=== PATIENT | male | born 1995 | race African-American/Black ===

== ENCOUNTER 2017-03-06 17:24 | Emergency (ER) | payer SELFPAY ==
[~2017-03-06] VITALS: Ht 180.3 cm; Wt 54.4 kg
[2017-03-06 17:50] VITALS: BP 131/56
[2017-03-06] MEDS ORDERED: NEOMY/BACITR/POLYMYXIN OINT PACKET. TP ONE (18:30)
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
[2017-03-06] MEDS ORDERED: DIPHTH,PERTUSS(ACELL),TET TOX 0.5 ML DISP.SYRIN. VAX IM ONE (18:45)
== END 2017-03-06 19:01 | disposition home or self-care (01) ==
LOC: ER 17:24
DX: S61.211A Laceration without foreign body of left index finger without damage to nail, initial encounter (principal); F12.10 Cannabis abuse, uncomplicated; W26.0XXA Contact with knife, initial encounter; Y93.89 Activity, other specified; Y92.89 Other specified places as the place of occurrence of the external cause; Y99.8 Other external cause status
CPT/HCPCS: 12001; 90471; 90715; 99283-25

== ENCOUNTER 2019-08-02 07:20 | Emergency (ER) | payer SELFPAY ==
[~2019-08-02] VITALS: Ht 180.3 cm; Wt 54.9 kg
[2019-08-02 07:30] VITALS: BP 111/66
[2019-08-02] MEDS ORDERED: chlorproMAZINE IM 25 MG/ML AMPUL IM ONE (07:45)
[2019-08-02] MEDS ORDERED: ONDA4TAB7 PO (08:46)
[2019-08-02] MEDS ORDERED: BACL10TA PO (08:46)
--- NOTE | 2019-08-02 08:46 | PHYS DOC ---
Past Medical History Past Medical History: No Pertinent History Past Surgical History: No Surgical History Alcohol Use: Rarely Drug Use: None Adult General Chief Complaint Chief Complaint: HICCUPS/SINGULTUS HPI HPI Patient is a 24 year old male who presents via EMS with complaining of hiccups and coughing and vomiting. Patient states he had sudden onset of the hiccups about 2 hours prior to arrival to ER and then had cough and small amount of vomiting dark-colored material. Patient denies abdominal pain, focal neuro deficit, dizziness, fever and chills, history of the same problem, abdominal pain. Review of Systems Review of Systems Constitutional: Denies fever or chills [] Eyes: Denies change in visual acuity, redness, or eye pain [] HENT: Denies nasal congestion or sore throat [] Respiratory: Denies shortness of breath [] Cardiovascular: No additional information not addressed in HPI [] GI: Denies abdominal pain, bloody stools or diarrhea [] : Denies dysuria or hematuria [] Musculoskeletal: Denies back pain or joint pain [] Integument: Denies rash or skin lesions [] Neurologic: Denies headache, focal weakness or sensory changes [] Endocrine: Denies polyuria or polydipsia [] All other systems were reviewed and found to be within normal limits, except as documented in this note. Current Medications Current Medications Current Medications Medications (Trade) Dose Ordered Sig/Talisha Start Time Stop Time Status Last Admin Dose Admin Chlorpromazine HCl (Thorazine Im) 25 mg 1X ONCE 08/02/19 07:45 08/02/19 07:46 DC 08/02/19 07:49 25 MG Allergies Allergies Allergies Coded Allergies Type Severity Reaction Last Updated Verified No Known Drug Allergies 06/27/15 No Physical Exam Physical Exam Constitutional: Well developed, well nourished, mild distress, non-toxic ned earance. [] HENT: Normocephalic, atraumatic. Eyes: PERRLA, EOMI, conjunctiva normal, no discharge. [] Neck: Normal range of motion, no tenderness, supple, no stridor. [] Cardiovascular:Heart rate regular rhythm, no murmur [] Lungs & Thorax: Bilateral breath sounds clear to auscultation [] Abdomen: Bowel sounds normal, soft, no tenderness, no masses, no pulsatile masses. [] Skin: Warm, dry, no erythema, no rash. [] Back: No tenderness, no CVA tenderness. [] Extremities: No tenderness, no cyanosis, no clubbing, ROM intact, no edema. [] Neurologic: Alert and oriented X 3, no focal deficits noted. [] Psychologic: Affect normal, judgement normal, mood normal. [] Current Patient Data Vital Signs Vital Signs Date Time Temp Pulse Resp B/P (MAP) Pulse Ox O2 Delivery O2 Flow Rate FiO2 08/02/19 07:30 97.9 79 18 111/66 (81) 95 Room Air 97.9 EKG EKG [] Radiology/Procedures Radiology/Procedures [] Course & Med Decision Making Course & Med Decision Making Evaluation of the patient in ER showed 24-year-old male patient with complaining of hiccups for 2 hours and complaining of vomiting and cough or hiccups worse today with croup. Patient had unremarkable physical exam and vital signs. Patient treated with IM chlorpromazine improvement of his condition. discharge: I've spoken with the patient and/or caregivers. I've explained the patient's condition, diagnosis and treatment plan based on information available to me at this time. I've answered the patient's and/or caregivers questions and addressed any concerns. The patient and/or caregivers have a good understanding the patient's diagnosis, condition and treatment plan as can be expected at this point. Vital signs have been stabilized. The patient's condition is stable for discharge from the emergency department. The patient will pursue further outpatient evaluation with her primary care provider or other designated consulting physician as outlined in the discharge instructions. Patient and/or caregivers are agreeable to this plan of care and follow-up instructions have been explained in detail. The patient and/or caregivers have received these instructions in written format and expressed understanding of these discharge instructions. The patient and her caregivers are aware that if any significant change in condition or worsening of symptoms should prompt him to immediately return to this of the closest emergency department. If an emergent department is not readily available I would encourage him to call 911. Sarah Disclaimer Sarah Disclaimer This electronic medical record was generated, in whole or in part, using a voice recognition dictation system. Departure Departure Impression: Primary Impression: Hiccups Additional Impression: Nausea & vomiting Disposition: HOME, SELF-CARE (at 0 [id number]) Condition: IMPROVED Referrals: NO PCP (PCP) Patient Instructions: Hiccups, Nausea and Vomiting Additional Instructions: Drink plenty of liquids Follow-up with your primary care physician in 3-5 days Return to ER if not getting better Do not eat solid food today Scripts Ondansetron Hcl (ZOFRAN) 4 Mg Tablet 1 TAB PO PRN Q6-8HRS for nausea, #12 TAB Prov: GUILLERMINA TREVINO MD 08/02/19 Baclofen (BACLOFEN) 10 Mg Tablet 1 TAB PO TID, #30 TAB 0 Refills Prov: GUILLERMINA TREVINO MD 08/02/19 Problem Qualifiers Additional Impression: Nausea & vomiting Vomiting type: unspecified Vomiting Intractability: unspecified Qualified Codes: R11.2 - Nausea with vomiting, unspecified GUILLERMINA TREVINO MD Aug 02, 2019 08:46
== END 2019-08-02 09:55 | disposition home or self-care (01) ==
LOC: ER 07:20
DX: R06.6 Hiccough (principal); R11.2 Nausea with vomiting, unspecified
CPT/HCPCS: 96372; 99283; J3230